=== PATIENT | male | born 1955 | race Caucasian/White ===

== ENCOUNTER 2023-02-16 06:37 | Day surgery (SDC) | payer MEDICARE ==
[2023-02-15 11:57] VITALS: BMI 31.6
[~2023-02-16 06:37] MED LIST: EPINEPHrine 0.3 MG in Ophthalmic Irrigation Solution 500 ML IRR SCH; Midazolam HCl 2 mg/2 ml Vial ONE; fentaNYL 50 mcg/mL 1 mL Vial ONE
[2023-02-16] MEDS ORDERED: Cyclopentolate W/ Phenylephrin 5 ML BOT ONE (07:18)
[2023-02-16] MEDS ORDERED: Maxitrol 0.1% Opth Oint 3.5 GM TUBE ONE (08:55)
[2023-02-16] MEDS ORDERED: Metoprolol Tartrate 5 MG/5 ML VIAL ONE (08:55)
[2023-02-16] MEDS ORDERED: Bupivacaine 0.75% 10 ML VIAL ONE (08:55)
[2023-02-16] MEDS ORDERED: Lidocaine 1% PF 5 ML VIAL ONE (08:55)
[2023-02-16] MEDS ORDERED: PROPOFOL 200 MG/20 ML VIAL ONE (08:55)
[2023-02-16] MEDS ORDERED: Triamcinolone 40 MG/ML VIAL ONE (08:55)
[2023-02-16] MEDS ORDERED: Acetylcholine 20 MG/2 ML VIAL (OR CHARGE) ONE (08:55)
[2023-02-16] MEDS ORDERED: Lidocaine 4% PF 5 ML AMP ONE (08:55)
[2023-02-16] MEDS ORDERED: CEFAZOLIN 1 GM VIAL ONE (08:55)
== END 2023-02-16 11:20 | disposition home or self-care (01) ==
LOC: SDC 06:37
PROVIDERS: ATTEND Ophthalmology Retina Specialist
PROC: 08T43ZZ Resection of Right Vitreous, Percutaneous Approach (ICD-10-PCS; principal; 2023-02-16)
PROC: 08H Eye, Insertion (ICD-10-PCS; 2023-02-16)
DX: H27.01 Aphakia, right eye (principal); H43.391 Other vitreous opacities, right eye
CPT/HCPCS: 66985; 67036; J3010; V2632; J0171; J0690; J2250; J2704; J3301; J3490

== ENCOUNTER 2023-03-16 06:04 | Day surgery (SDC) | payer MEDICARE ==
[2023-03-15 08:41] VITALS: BMI 31.6
[~2023-03-16 06:04] MED LIST changes: -Midazolam HCl 2 mg/2 ml Vial ONE; -fentaNYL 50 mcg/mL 1 mL Vial ONE
[2023-03-16] MEDS ORDERED: Cyclopentolate W/ Phenylephrin 5 ML BOT ONE (06:10)
[2023-03-16] MEDS ORDERED: fentaNYL 50 mcg/mL 1 mL Vial ONE (06:39)
[2023-03-16] MEDS ORDERED: Midazolam HCl 2 mg/2 ml Vial ONE (07:11)
== END 2023-03-16 09:00 | disposition home or self-care (01) ==
LOC: SDC 06:04
PROVIDERS: ATTEND Ophthalmology Retina Specialist
PROC: 08T43ZZ Resection of Right Vitreous, Percutaneous Approach (ICD-10-PCS; principal; 2023-03-16)
DX: H27.121 Anterior dislocation of lens, right eye (principal); E11.9 Type 2 diabetes mellitus without complications; I10 Essential (primary) hypertension; M54.9 Dorsalgia, unspecified; G89.29 Other chronic pain; Z98.890 Other specified postprocedural states; Z79.899 Other long term (current) drug therapy
CPT/HCPCS: 66825; J3010; V2632; J0171; J2250